=== PATIENT | female | born 1970 | race African-American/Black ===

== ENCOUNTER 2020-03-29 11:38 | Inpatient (IN) | payer BC, OTHER ==
[2020-03-29] MEDS ORDERED: MAGNESIUM CITRATE 300 ML BOTTLE PO PRN (12:06)
[2020-03-29] MEDS ORDERED: MAGNESIUM HYDROX 2400MG/30ML ORAL SUSPENSION 30 ML CUP PO PRN (12:06)
[2020-03-29] MEDS ORDERED: LOPERAMIDE HCL 2 MG CAPSULE PO PRN (12:06)
[2020-03-29] MEDS ORDERED: guaiFENesin 200 MG/10 ML 10 ML UNIT-DOSE CUPS PO PRN (12:06)
[2020-03-29] MEDS ORDERED: P-EPHED 60MG/TRIPROLIDI 2.5MG TABLET PO PRN (12:06)
[2020-03-29] MEDS ORDERED: PT OWN MED DRAWER 7, Y5N ONE ×3 (18:52→21:37)
[2020-03-29] MEDS: hydrOXYzine PAMOATE 25 MG CAPSULE (FP) PO PRN (19:11)
[2020-03-29] MEDS: COLLOIDAL OATMEAL 1 BAR EACH TP PRN (19:12)
[2020-03-29] MEDS: AMMONIUM LACTATE 12% LOTION 225 GM BOTTLE TP PRN (19:14)
[2020-03-29] MEDS: GABAPENTIN 300 MG CAPSULE PO SCH (21:18)
[2020-03-29] MEDS: MELATONIN 5 MG TABLETS PO SCH (21:18)
[2020-03-29] MEDS: THIAMINE HCL 100 MG TABLET (FP) PO SCH (21:18)
[2020-03-29] MEDS: traZODone HCL 100 MG TABLET (FP) PO SCH (21:19)
[2020-03-29] MEDS: TRIAMCINOLONE ACET 0.1% OINT 15 GM TUBE TP SCH (21:20)
[2020-03-29] MEDS: LIDOCAINE PATCH REMOVAL MC SCH (21:20)
[2020-03-29] MEDS: MICONAZOLE NITRATE 2% VAGINAL CREAM 45 GM TUBE VG SCH (21:20)
[2020-03-30] MEDS: PRENATAL VITAMINS W/ FOLIC ACID TABLET (FP) PO SCH (09:59)
[2020-03-30] MEDS: PANTOPRAZOLE 40 MG TABLET PO SCH (10:00)
[2020-03-30] MEDS: ARIPiprazole 10 MG TABLET PO SCH (10:00)
[2020-03-30] MEDS: LIDOCAINE 5% TOPICAL PATCH TP SCH (10:00)
[2020-03-30] MEDS ORDERED: PT OWN MED DRAWER 7, Y5N ONE (10:02)
[2020-03-30] MEDS: TRIAMCINOLONE ACET 0.1% OINT 15 GM TUBE TP SCH ×2 (10:02→21:22)
[2020-03-30] MEDS: MENTHOL/PHENOL 1 EACH UD MM PRN (11:54)
[2020-03-30] MEDS ORDERED: FLU VACCINE (FLULAVAL) PF 60 MCG/0.5 ML SYRINGE 2020-2021 IM ONE (12:08)
[2020-03-30] MEDS: traZODone HCL 100 MG TABLET (FP) PO SCH (21:20)
[2020-03-30] MEDS: GABAPENTIN 300 MG CAPSULE PO SCH (21:20)
[2020-03-30] MEDS: THIAMINE HCL 100 MG TABLET (FP) PO SCH (21:20)
[2020-03-30] MEDS: MELATONIN 5 MG TABLETS PO SCH (21:20)
[2020-03-30] MEDS: IBUPROFEN 400 MG TABLET (FP) PO PRN (21:21)
[2020-03-30] MEDS: LIDOCAINE PATCH REMOVAL MC SCH (21:22)
[2020-03-30] MEDS: MICONAZOLE NITRATE 2% VAGINAL CREAM 45 GM TUBE VG SCH (21:22)
[2020-03-31] MEDS: PANTOPRAZOLE 40 MG TABLET PO SCH (10:34)
[2020-03-31] MEDS: PRENATAL VITAMINS W/ FOLIC ACID TABLET (FP) PO SCH (10:34)
[2020-03-31] MEDS: ARIPiprazole 10 MG TABLET PO SCH (10:34)
[2020-03-31] MEDS: LIDOCAINE 5% TOPICAL PATCH TP SCH (10:34)
[2020-03-31] MEDS: TRIAMCINOLONE ACET 0.1% OINT 15 GM TUBE TP SCH ×2 (10:35→21:43)
[2020-03-31] MEDS: IBUPROFEN 400 MG TABLET (FP) PO PRN (13:54)
[2020-03-31] MEDS: METHOCARBAMOL 500 MG TABLET PO PRN (13:54)
[2020-03-31] MEDS: traZODone HCL 100 MG TABLET (FP) PO SCH (21:41)
[2020-03-31] MEDS: GABAPENTIN 300 MG CAPSULE PO SCH (21:41)
[2020-03-31] MEDS: MELATONIN 5 MG TABLETS PO SCH (21:41)
[2020-03-31] MEDS: THIAMINE HCL 100 MG TABLET (FP) PO SCH (21:41)
[2020-03-31] MEDS: LIDOCAINE PATCH REMOVAL MC SCH (21:42)
[2020-03-31] MEDS: MICONAZOLE NITRATE 2% VAGINAL CREAM 45 GM TUBE VG SCH (21:43)
[2020-04-01] MEDS: METHOCARBAMOL 500 MG TABLET PO PRN (10:01)
[2020-04-01] MEDS: PANTOPRAZOLE 40 MG TABLET PO SCH (10:01)
[2020-04-01] MEDS: hydrOXYzine PAMOATE 25 MG CAPSULE (FP) PO PRN (10:01)
[2020-04-01] MEDS: ARIPiprazole 10 MG TABLET PO SCH (10:01)
[2020-04-01] MEDS: PRENATAL VITAMINS W/ FOLIC ACID TABLET (FP) PO SCH (10:01)
[2020-04-01] MEDS: LIDOCAINE 5% TOPICAL PATCH TP SCH (10:02)
[2020-04-01] MEDS: MENTHOL/PHENOL 1 EACH UD MM PRN (10:04)
[2020-04-01] MEDS: TRIAMCINOLONE ACET 0.1% OINT 15 GM TUBE TP SCH ×2 (10:05→21:45)
[2020-04-01] MEDS: IBUPROFEN 400 MG TABLET (FP) PO PRN (19:17)
[2020-04-01] MEDS: traZODone HCL 100 MG TABLET (FP) PO SCH (21:43)
[2020-04-01] MEDS: GABAPENTIN 300 MG CAPSULE PO SCH (21:43)
[2020-04-01] MEDS: THIAMINE HCL 100 MG TABLET (FP) PO SCH (21:44)
[2020-04-01] MEDS: MICONAZOLE NITRATE 2% VAGINAL CREAM 45 GM TUBE VG SCH (21:44)
[2020-04-01] MEDS: MELATONIN 5 MG TABLETS PO SCH (21:45)
[2020-04-01] MEDS: LIDOCAINE PATCH REMOVAL MC SCH (21:45)
[2020-04-02] MEDS: ARIPiprazole 10 MG TABLET PO SCH (10:20)
[2020-04-02] MEDS: PRENATAL VITAMINS W/ FOLIC ACID TABLET (FP) PO SCH (10:20)
[2020-04-02] MEDS: hydrOXYzine PAMOATE 25 MG CAPSULE (FP) PO PRN (10:20)
[2020-04-02] MEDS: PANTOPRAZOLE 40 MG TABLET PO SCH (10:20)
[2020-04-02] MEDS: METHOCARBAMOL 500 MG TABLET PO PRN (10:20)
[2020-04-02] MEDS: LIDOCAINE 5% TOPICAL PATCH TP SCH (10:21)
[2020-04-02] MEDS: TRIAMCINOLONE ACET 0.1% OINT 15 GM TUBE TP SCH ×2 (10:21→21:27)
[2020-04-02 14:50] LABS: BASO % 0.7 % (0-2.0); EOS % 2.2 % (0-4.5); HEMATOCRIT 31.1 % (32.4-45.2); HEMOGLOBIN 10.1 GM/dL (10.7-15.3); MCH 32.8 pg (25.7-33.7); MCHC 32.6 g/dl (32.0-36.0); MEAN CELL VOLUME 100.6 fl (80-96); MEAN PLT VOLUME 8.8 fl (7.5-11.1); MONO % 9.7 % (3.8-10.2); NEUT % 51.4 % (42.8-82.8); PLATELET COUNT 250 K/MM3 (134-434); RBC 3.09 M/mm3 (3.60-5.2); RDW 17.5 % (11.6-15.6); WHITE BLOOD COUNT 4.2 K/mm3 (4.0-10.0)
[2020-04-02] MEDS: IBUPROFEN 400 MG TABLET (FP) PO PRN (19:59)
[2020-04-02] MEDS: MELATONIN 5 MG TABLETS PO SCH (21:26)
[2020-04-02] MEDS: MICONAZOLE NITRATE 2% VAGINAL CREAM 45 GM TUBE VG SCH (21:26)
[2020-04-02] MEDS: GABAPENTIN 300 MG CAPSULE PO SCH (21:26)
[2020-04-02] MEDS: traZODone HCL 100 MG TABLET (FP) PO SCH (21:26)
[2020-04-02] MEDS: THIAMINE HCL 100 MG TABLET (FP) PO SCH (21:26)
[2020-04-02] MEDS: LIDOCAINE PATCH REMOVAL MC SCH (21:27)
[2020-04-03] MEDS: ACETAMINOPHEN 325 MG TABLET (FP) PO PRN (08:35)
[2020-04-03] MEDS: LIDOCAINE 5% TOPICAL PATCH TP SCH (10:25)
[2020-04-03] MEDS: ARIPiprazole 10 MG TABLET PO SCH (10:25)
[2020-04-03] MEDS: PRENATAL VITAMINS W/ FOLIC ACID TABLET (FP) PO SCH (10:25)
[2020-04-03] MEDS: PANTOPRAZOLE 40 MG TABLET PO SCH (10:25)
[2020-04-03] MEDS: FERROUS SO4 325 MG TABLET (FP) PO SCH (10:25)
[2020-04-03] MEDS: METHOCARBAMOL 500 MG TABLET PO PRN (10:25)
[2020-04-03] MEDS: TRIAMCINOLONE ACET 0.1% OINT 15 GM TUBE TP SCH ×2 (10:26→21:15)
[2020-04-03] MEDS: hydrOXYzine PAMOATE 25 MG CAPSULE (FP) PO PRN ×2 (10:26→14:23)
[2020-04-03] MEDS: MAG HYDROX/AL HYDROX/SIMETH 30 ML UNIT-DOSE CUP PO PRN (11:05)
[2020-04-03] MEDS: NALTREXONE HCL 50 MG TABLET PO SCH (14:22)
[2020-04-03] MEDS: MELATONIN 5 MG TABLETS PO SCH (21:14)
[2020-04-03] MEDS: GABAPENTIN 300 MG CAPSULE PO SCH (21:14)
[2020-04-03] MEDS: THIAMINE HCL 100 MG TABLET (FP) PO SCH (21:14)
[2020-04-03] MEDS: traZODone HCL 100 MG TABLET (FP) PO SCH (21:14)
[2020-04-03] MEDS: LIDOCAINE PATCH REMOVAL MC SCH (21:15)
[2020-04-03] MEDS: MICONAZOLE NITRATE 2% VAGINAL CREAM 45 GM TUBE VG SCH (21:15)
[2020-04-03] MEDS: IBUPROFEN 400 MG TABLET (FP) PO PRN (21:32)
[2020-04-04] MEDS: ARTIFICIAL TEARS (POLYVINYL ALCOHOL) OPTH DROPS OU PRN ×2 (08:47→18:04)
[2020-04-04] MEDS: ARIPiprazole 10 MG TABLET PO SCH (10:06)
[2020-04-04] MEDS: hydrOXYzine PAMOATE 25 MG CAPSULE (FP) PO PRN ×3 (10:07→21:34)
[2020-04-04] MEDS: NALTREXONE HCL 50 MG TABLET PO SCH (10:07)
[2020-04-04] MEDS: PANTOPRAZOLE 40 MG TABLET PO SCH (10:07)
[2020-04-04] MEDS: FERROUS SO4 325 MG TABLET (FP) PO SCH (10:07)
[2020-04-04] MEDS: METHOCARBAMOL 500 MG TABLET PO PRN (10:07)
[2020-04-04] MEDS: PRENATAL VITAMINS W/ FOLIC ACID TABLET (FP) PO SCH (10:07)
[2020-04-04] MEDS ORDERED: PT OWN MED DRAWER 7, Y5N ONE (10:10)
[2020-04-04] MEDS: COLLOIDAL OATMEAL 1 BAR EACH TP PRN (10:11)
[2020-04-04] MEDS: AMMONIUM LACTATE 12% LOTION 225 GM BOTTLE TP PRN (10:11)
[2020-04-04] MEDS: TRIAMCINOLONE ACET 0.1% OINT 15 GM TUBE TP SCH ×2 (10:48→21:37)
[2020-04-04] MEDS: LIDOCAINE 5% TOPICAL PATCH TP SCH (11:50)
[2020-04-04] MEDS: GABAPENTIN 300 MG CAPSULE PO SCH (21:34)
[2020-04-04] MEDS: traZODone HCL 100 MG TABLET (FP) PO SCH (21:35)
[2020-04-04] MEDS: MELATONIN 5 MG TABLETS PO SCH (21:35)
[2020-04-04] MEDS: THIAMINE HCL 100 MG TABLET (FP) PO SCH (21:35)
[2020-04-04] MEDS: LIDOCAINE PATCH REMOVAL MC SCH (21:36)
[2020-04-04] MEDS: MICONAZOLE NITRATE 2% VAGINAL CREAM 45 GM TUBE VG SCH (21:37)
[2020-04-05] MEDS: METHOCARBAMOL 500 MG TABLET PO PRN ×3 (09:48→21:35)
[2020-04-05] MEDS: hydrOXYzine PAMOATE 25 MG CAPSULE (FP) PO PRN (09:48)
[2020-04-05] MEDS: FERROUS SO4 325 MG TABLET (FP) PO SCH (09:48)
[2020-04-05] MEDS: PRENATAL VITAMINS W/ FOLIC ACID TABLET (FP) PO SCH (09:48)
[2020-04-05] MEDS: PANTOPRAZOLE 40 MG TABLET PO SCH (09:48)
[2020-04-05] MEDS: NALTREXONE HCL 50 MG TABLET PO SCH (09:48)
[2020-04-05] MEDS: ARIPiprazole 10 MG TABLET PO SCH (09:49)
[2020-04-05] MEDS: TRIAMCINOLONE ACET 0.1% OINT 15 GM TUBE TP SCH ×2 (09:49→21:36)
[2020-04-05] MEDS: LIDOCAINE 5% TOPICAL PATCH TP SCH (09:52)
[2020-04-05] MEDS: ARTIFICIAL TEARS (POLYVINYL ALCOHOL) OPTH DROPS OU PRN (09:52)
[2020-04-05] MEDS ORDERED: MASKS NR ONE (16:26)
[2020-04-05] MEDS: MELATONIN 5 MG TABLETS PO SCH (21:35)
[2020-04-05] MEDS: GABAPENTIN 300 MG CAPSULE PO SCH (21:35)
[2020-04-05] MEDS: THIAMINE HCL 100 MG TABLET (FP) PO SCH (21:35)
[2020-04-05] MEDS: traZODone HCL 100 MG TABLET (FP) PO SCH (21:35)
[2020-04-05] MEDS: LIDOCAINE PATCH REMOVAL MC SCH (21:36)
[2020-04-06] MEDS ORDERED: MASKS NR ONE (06:25)
[2020-04-06] MEDS ORDERED: PT OWN MED DRAWER 7, Y5N ONE ×3 (08:50→21:06)
[2020-04-06] MEDS: MAG HYDROX/AL HYDROX/SIMETH 30 ML UNIT-DOSE CUP PO PRN (09:02)
[2020-04-06] MEDS: ARIPiprazole 10 MG TABLET PO SCH (10:02)
[2020-04-06] MEDS: FERROUS SO4 325 MG TABLET (FP) PO SCH (10:02)
[2020-04-06] MEDS: PRENATAL VITAMINS W/ FOLIC ACID TABLET (FP) PO SCH (10:02)
[2020-04-06] MEDS: NALTREXONE HCL 50 MG TABLET PO SCH (10:02)
[2020-04-06] MEDS: PANTOPRAZOLE 40 MG TABLET PO SCH (10:02)
[2020-04-06] MEDS: TRIAMCINOLONE ACET 0.1% OINT 15 GM TUBE TP SCH ×2 (10:02→21:04)
[2020-04-06] MEDS: LIDOCAINE 5% TOPICAL PATCH TP SCH (10:03)
[2020-04-06] MEDS: hydrOXYzine PAMOATE 25 MG CAPSULE (FP) PO PRN ×2 (10:04→21:03)
[2020-04-06] MEDS: ARTIFICIAL TEARS (POLYVINYL ALCOHOL) OPTH DROPS OU PRN (11:22)
[2020-04-06] MEDS: IBUPROFEN 400 MG TABLET (FP) PO PRN (18:35)
[2020-04-06] MEDS: DOCUSATE SODIUM 100 MG CAPSULE (FP) PO SCH (21:03)
[2020-04-06] MEDS: GABAPENTIN 300 MG CAPSULE PO SCH (21:03)
[2020-04-06] MEDS: traZODone HCL 100 MG TABLET (FP) PO SCH (21:03)
[2020-04-06] MEDS: THIAMINE HCL 100 MG TABLET (FP) PO SCH (21:04)
[2020-04-06] MEDS: LIDOCAINE PATCH REMOVAL MC SCH (21:04)
[2020-04-06] MEDS: MELATONIN 5 MG TABLETS PO SCH (21:04)
[2020-04-07] MEDS ORDERED: ARIPiprazole 5 MG TABLET ONE (08:27)
[2020-04-07] MEDS ORDERED: PT OWN MED DRAWER 7, Y5N ONE ×2 (08:27→21:07)
[2020-04-07] MEDS: ARIPiprazole 10 MG TABLET PO SCH (09:35)
[2020-04-07] MEDS: TRIAMCINOLONE ACET 0.1% OINT 15 GM TUBE TP SCH ×2 (09:35→21:07)
[2020-04-07] MEDS: FERROUS SO4 325 MG TABLET (FP) PO SCH (09:36)
[2020-04-07] MEDS: PRENATAL VITAMINS W/ FOLIC ACID TABLET (FP) PO SCH (09:36)
[2020-04-07] MEDS: LIDOCAINE 5% TOPICAL PATCH TP SCH (09:36)
[2020-04-07] MEDS: PANTOPRAZOLE 40 MG TABLET PO SCH (09:37)
[2020-04-07] MEDS: NALTREXONE HCL 50 MG TABLET PO SCH (09:37)
[2020-04-07] MEDS: ARTIFICIAL TEARS (POLYVINYL ALCOHOL) OPTH DROPS OU PRN (09:38)
[2020-04-07] MEDS: AMMONIUM LACTATE 12% LOTION 225 GM BOTTLE TP PRN (09:38)
[2020-04-07] MEDS: hydrOXYzine PAMOATE 25 MG CAPSULE (FP) PO PRN ×2 (09:39→21:05)
[2020-04-07] MEDS: METHOCARBAMOL 500 MG TABLET PO PRN (21:05)
[2020-04-07] MEDS: THIAMINE HCL 100 MG TABLET (FP) PO SCH (21:05)
[2020-04-07] MEDS: DOCUSATE SODIUM 100 MG CAPSULE (FP) PO SCH (21:05)
[2020-04-07] MEDS: traZODone HCL 100 MG TABLET (FP) PO SCH (21:05)
[2020-04-07] MEDS: GABAPENTIN 300 MG CAPSULE PO SCH (21:05)
[2020-04-07] MEDS: MELATONIN 5 MG TABLETS PO SCH (21:06)
[2020-04-07] MEDS: LIDOCAINE PATCH REMOVAL MC SCH (21:07)
[2020-04-08 00:06] LABS: HEP B CORE AB, TOT Negative (Negative)
[2020-04-08] MEDS: ARTIFICIAL TEARS (POLYVINYL ALCOHOL) OPTH DROPS OU PRN (06:40)
[2020-04-08] MEDS ORDERED: PT OWN MED DRAWER 7, Y5N ONE ×2 (06:41→08:24)
[2020-04-08] MEDS: METHOCARBAMOL 500 MG TABLET PO PRN ×3 (06:41→21:20)
[2020-04-08] MEDS: ACETAMINOPHEN 325 MG TABLET (FP) PO PRN ×2 (06:41→18:38)
[2020-04-08] MEDS: ARIPiprazole 10 MG TABLET PO SCH (09:24)
[2020-04-08] MEDS: PANTOPRAZOLE 40 MG TABLET PO SCH (09:25)
[2020-04-08] MEDS: NALTREXONE HCL 50 MG TABLET PO SCH (09:25)
[2020-04-08] MEDS: PRENATAL VITAMINS W/ FOLIC ACID TABLET (FP) PO SCH (09:25)
[2020-04-08] MEDS: FERROUS SO4 325 MG TABLET (FP) PO SCH (09:25)
[2020-04-08] MEDS: LIDOCAINE 5% TOPICAL PATCH TP SCH (09:25)
[2020-04-08] MEDS: TRIAMCINOLONE ACET 0.1% OINT 15 GM TUBE TP SCH ×2 (09:27→21:19)
[2020-04-08] MEDS: hydrOXYzine PAMOATE 25 MG CAPSULE (FP) PO PRN ×2 (09:27→21:21)
[2020-04-08] MEDS: GABAPENTIN 300 MG CAPSULE PO SCH (21:20)
[2020-04-08] MEDS: LIDOCAINE PATCH REMOVAL MC SCH (21:20)
[2020-04-08] MEDS: DOCUSATE SODIUM 100 MG CAPSULE (FP) PO SCH (21:20)
[2020-04-08] MEDS: traZODone HCL 100 MG TABLET (FP) PO SCH (21:20)
[2020-04-08] MEDS: MELATONIN 5 MG TABLETS PO SCH (21:21)
[2020-04-08] MEDS: THIAMINE HCL 100 MG TABLET (FP) PO SCH (21:21)
[2020-04-09] MEDS: METHOCARBAMOL 500 MG TABLET PO PRN ×2 (06:39→16:43)
[2020-04-09] MEDS: ARTIFICIAL TEARS (POLYVINYL ALCOHOL) OPTH DROPS OU PRN (06:39)
[2020-04-09] MEDS ORDERED: PT OWN MED DRAWER 7, Y5N ONE ×3 (06:40→13:45)
[2020-04-09] MEDS: hydrOXYzine PAMOATE 25 MG CAPSULE (FP) PO PRN ×2 (10:05→21:14)
[2020-04-09] MEDS: PANTOPRAZOLE 40 MG TABLET PO SCH (10:05)
[2020-04-09] MEDS: FERROUS SO4 325 MG TABLET (FP) PO SCH (10:05)
[2020-04-09] MEDS: ARIPiprazole 10 MG TABLET PO SCH (10:06)
[2020-04-09] MEDS: PRENATAL VITAMINS W/ FOLIC ACID TABLET (FP) PO SCH (10:06)
[2020-04-09] MEDS: TRIAMCINOLONE ACET 0.1% OINT 15 GM TUBE TP SCH ×2 (10:07→21:15)
[2020-04-09] MEDS: LIDOCAINE 5% TOPICAL PATCH TP SCH (10:08)
[2020-04-09] MEDS: AMMONIUM LACTATE 12% LOTION 225 GM BOTTLE TP PRN ×2 (10:09→21:20)
[2020-04-09] MEDS ORDERED: NALTREXONE MICROSPHERES (VIVITROL) 380 MG DISP.SYRIN IM ONE (14:00)
[2020-04-09] MEDS: ACETAMINOPHEN 325 MG TABLET (FP) PO PRN (16:42)
[2020-04-09] MEDS: DOCUSATE SODIUM 100 MG CAPSULE (FP) PO SCH (21:14)
[2020-04-09] MEDS: MELATONIN 5 MG TABLETS PO SCH (21:14)
[2020-04-09] MEDS: GABAPENTIN 300 MG CAPSULE PO SCH (21:14)
[2020-04-09] MEDS: traZODone HCL 100 MG TABLET (FP) PO SCH (21:14)
[2020-04-09] MEDS: THIAMINE HCL 100 MG TABLET (FP) PO SCH (21:14)
[2020-04-09] MEDS: LIDOCAINE PATCH REMOVAL MC SCH (21:15)
[2020-04-09] MEDS: SENNOSIDES 8.6MG TABLET (FP) PO SCH (21:17)
[2020-04-10] MEDS: METHOCARBAMOL 500 MG TABLET PO PRN ×2 (02:07→21:16)
[2020-04-10 07:27] VITALS: TEMP 97.5
[2020-04-10] MEDS ORDERED: ARIPiprazole 5 MG TABLET ONE (08:14)
[2020-04-10] MEDS: ARIPiprazole 10 MG TABLET PO SCH (10:01)
[2020-04-10] MEDS: TRIAMCINOLONE ACET 0.1% OINT 15 GM TUBE TP SCH ×2 (10:02→21:18)
[2020-04-10] MEDS: FERROUS SO4 325 MG TABLET (FP) PO SCH (10:02)
[2020-04-10] MEDS: PANTOPRAZOLE 40 MG TABLET PO SCH (10:03)
[2020-04-10] MEDS: SENNOSIDES 8.6MG TABLET (FP) PO SCH ×2 (10:03→21:17)
[2020-04-10] MEDS: PRENATAL VITAMINS W/ FOLIC ACID TABLET (FP) PO SCH (10:03)
[2020-04-10] MEDS: LIDOCAINE 5% TOPICAL PATCH TP SCH (10:03)
[2020-04-10] MEDS: hydrOXYzine PAMOATE 25 MG CAPSULE (FP) PO PRN (10:04)
[2020-04-10] MEDS: THIAMINE HCL 100 MG TABLET (FP) PO SCH (21:16)
[2020-04-10] MEDS: MELATONIN 5 MG TABLETS PO SCH (21:16)
[2020-04-10] MEDS: DOCUSATE SODIUM 100 MG CAPSULE (FP) PO SCH (21:16)
[2020-04-10] MEDS: GABAPENTIN 300 MG CAPSULE PO SCH (21:17)
[2020-04-10] MEDS: LIDOCAINE PATCH REMOVAL MC SCH (21:17)
[2020-04-10] MEDS: traZODone HCL 100 MG TABLET (FP) PO SCH (21:17)
[2020-04-10] MEDS ORDERED: PT OWN MED DRAWER 7, Y5N ONE (21:20)
[2020-04-11] MEDS: NAPHAZOLINE/PHENIRAMINE OPHTHALMIC 15 ML BOTTLE OU PRN (06:44)
[2020-04-11] MEDS: METHOCARBAMOL 500 MG TABLET PO PRN ×3 (06:45→19:35)
[2020-04-11] MEDS ORDERED: PT OWN MED DRAWER 7, Y5N ONE ×3 (06:52→21:02)
[2020-04-11] MEDS: MENTHOL/PHENOL 1 EACH UD MM PRN ×3 (06:53→19:35)
[2020-04-11] MEDS: SENNOSIDES 8.6MG TABLET (FP) PO SCH ×2 (10:10→21:04)
[2020-04-11] MEDS: PRENATAL VITAMINS W/ FOLIC ACID TABLET (FP) PO SCH (10:10)
[2020-04-11] MEDS: ARIPiprazole 10 MG TABLET PO SCH (10:10)
[2020-04-11] MEDS: FERROUS SO4 325 MG TABLET (FP) PO SCH (10:10)
[2020-04-11] MEDS: PANTOPRAZOLE 40 MG TABLET PO SCH (10:10)
[2020-04-11] MEDS: LIDOCAINE 5% TOPICAL PATCH TP SCH (10:11)
[2020-04-11] MEDS: TRIAMCINOLONE ACET 0.1% OINT 15 GM TUBE TP SCH ×2 (10:11→21:04)
[2020-04-11] MEDS: GABAPENTIN 300 MG CAPSULE PO SCH (21:04)
[2020-04-11] MEDS: MELATONIN 5 MG TABLETS PO SCH (21:04)
[2020-04-11] MEDS: THIAMINE HCL 100 MG TABLET (FP) PO SCH (21:04)
[2020-04-11] MEDS: DOCUSATE SODIUM 100 MG CAPSULE (FP) PO SCH (21:04)
[2020-04-11] MEDS: traZODone HCL 100 MG TABLET (FP) PO SCH (21:04)
[2020-04-11] MEDS: LIDOCAINE PATCH REMOVAL MC SCH (21:05)
[2020-04-12] MEDS: NAPHAZOLINE/PHENIRAMINE OPHTHALMIC 15 ML BOTTLE OU PRN (06:17)
[2020-04-12] MEDS ORDERED: PT OWN MED DRAWER 7, Y5N ONE ×3 (06:17→19:37)
[2020-04-12] MEDS: METHOCARBAMOL 500 MG TABLET PO PRN ×2 (06:17→21:06)
[2020-04-12] MEDS ORDERED: ARIPiprazole 5 MG TABLET ONE (08:33)
[2020-04-12] MEDS: ARIPiprazole 10 MG TABLET PO SCH (09:52)
[2020-04-12] MEDS: LIDOCAINE 5% TOPICAL PATCH TP SCH (09:53)
[2020-04-12] MEDS: PRENATAL VITAMINS W/ FOLIC ACID TABLET (FP) PO SCH (09:53)
[2020-04-12] MEDS: TRIAMCINOLONE ACET 0.1% OINT 15 GM TUBE TP SCH ×2 (09:53→21:05)
[2020-04-12] MEDS: FERROUS SO4 325 MG TABLET (FP) PO SCH (09:53)
[2020-04-12] MEDS: SENNOSIDES 8.6MG TABLET (FP) PO SCH ×2 (09:54→21:06)
[2020-04-12] MEDS: PANTOPRAZOLE 40 MG TABLET PO SCH (09:54)
[2020-04-12] MEDS ORDERED: traZODone HCL 50 MG TABLET (FP) ONE (19:37)
[2020-04-12] MEDS: GABAPENTIN 300 MG CAPSULE PO SCH (21:06)
[2020-04-12] MEDS: LIDOCAINE PATCH REMOVAL MC SCH (21:06)
[2020-04-12] MEDS: THIAMINE HCL 100 MG TABLET (FP) PO SCH (21:06)
[2020-04-12] MEDS: DOCUSATE SODIUM 100 MG CAPSULE (FP) PO SCH (21:06)
[2020-04-12] MEDS: traZODone HCL 100 MG TABLET (FP) PO SCH (21:07)
[2020-04-12] MEDS: MELATONIN 5 MG TABLETS PO SCH (21:07)
[2020-04-12] MEDS: AMMONIUM LACTATE 12% LOTION 225 GM BOTTLE TP PRN (21:09)
[2020-04-13] MEDS: hydrOXYzine PAMOATE 25 MG CAPSULE (FP) PO PRN (05:47)
[2020-04-13] MEDS: METHOCARBAMOL 500 MG TABLET PO PRN (05:47)
[2020-04-13] MEDS: NAPHAZOLINE/PHENIRAMINE OPHTHALMIC 15 ML BOTTLE OU PRN (05:48)
[2020-04-13 06:50] VITALS: BP 105/74; PULSE 89
[2020-04-13] MEDS: ARIPiprazole 10 MG TABLET PO SCH (09:01)
[2020-04-13] MEDS: PANTOPRAZOLE 40 MG TABLET PO SCH (09:02)
[2020-04-13] MEDS: LIDOCAINE 5% TOPICAL PATCH TP SCH (09:02)
[2020-04-13] MEDS: SENNOSIDES 8.6MG TABLET (FP) PO SCH (09:02)
[2020-04-13] MEDS: FERROUS SO4 325 MG TABLET (FP) PO SCH (09:02)
[2020-04-13] MEDS: PRENATAL VITAMINS W/ FOLIC ACID TABLET (FP) PO SCH (09:02)
[2020-04-13] MEDS: TRIAMCINOLONE ACET 0.1% OINT 15 GM TUBE TP SCH (09:03)
== END 2020-04-13 09:09 | disposition home or self-care (01) | DRG 895 ==
LOC: YASAS 11:38 → UNDOADMIN 11:40 → Y3W 11:40 → Y3E 04-06 11:48
PROVIDERS: ADMIT Allergy & Immunology; ATTEND Allergy & Immunology
PROC: HZ42ZZZ Group Counseling for Substance Abuse Treatment, Cognitive-Behavioral (ICD-10-PCS; principal; 2020-03-29)
DX: F10.20 Alcohol dependence, uncomplicated (principal); F12.20 Cannabis dependence, uncomplicated; F17.210 Nicotine dependence, cigarettes, uncomplicated; K21.9 Gastro-esophageal reflux disease without esophagitis; G62.9 Polyneuropathy, unspecified; D50.9 Iron deficiency anemia, unspecified; K59.00 Constipation, unspecified; J02.9 Acute pharyngitis, unspecified
CPT/HCPCS: 36415; 85025; 86704; 86706; 86707; 86708; 86709; 86803; 87070; 87340; G0008; J2315; Q2036